=== PATIENT | male | born 1955 | race Hispanic/Latino ===

== ENCOUNTER 2019-09-13 10:36 | Outpatient (CLI) | payer MEDICARE, OTHER ==
--- NOTE | 2019-09-13 11:37 | Cat Scan Report ---
CT ABDOMEN AND PELVIS WITHOUT CONTRAST INDICATION / CLINICAL INFORMATION: BENIGH PROSTATIC HYPERPLASIA. TECHNIQUE: Axial CT images were obtained through the abdomen and pelvis without IV contrast. All CT scans at [facility] location are performed using CT dose reduction for ALARA by means of automated exposure control. COMPARISON: None available. FINDINGS: LOWER CHEST: No significant abnormality. LIVER: No significant abnormality. GALLBLADDER: Removed. BILE DUCTS: No significant abnormality. PANCREAS: No significant abnormality. SPLEEN: Removed. ADRENALS: No significant abnormality. RIGHT KIDNEY and URETER: Nonobstructive nephrolithiasis. LEFT KIDNEY and URETER: Nonobstructive nephrolithiasis. STOMACH and SMALL BOWEL: No significant abnormality. COLON: Sigmoid diverticulosis without diverticulitis.. APPENDIX: No significant abnormality. PERITONEUM: No free fluid. No free air. No fluid collection. LYMPH NODES: Shotty retroperitoneal nodes, enlarged.. AORTA and ARTERIES: No significant abnormality. IVC and VEINS: No significant abnormality. URINARY BLADDER: No significant abnormality. REPRODUCTIVE ORGANS: Extensive coarse calcifications throughout the prostate.. ADDITIONAL FINDINGS: None. SKELETAL SYSTEM: No significant abnormality. IMPRESSION: Bilateral nephrolithiasis, as above. No obstructive ureteral calculus is identified. No enlarged retr operitoneal nodes are identified. Multiple shotty periaortic nodes are present, as above. Signer Name: Brigido Hogan MD Signed: 09/13/2019 11:32 AM Workstation Name: [id number]
== END 2019-09-13 10:37 | disposition home or self-care (01) ==
LOC: CT 10:36
PROVIDERS: ATTEND Urology
DX: N20.0 Calculus of kidney (principal); K57.30 Diverticulosis of large intestine without perforation or abscess without bleeding; N40.1 Benign prostatic hyperplasia with lower urinary tract symptoms; N42.89 Other specified disorders of prostate; Z90.49 Acquired absence of other specified parts of digestive tract; Z90.81 Acquired absence of spleen
CPT/HCPCS: 74176